=== PATIENT | male | born 1965 | race Caucasian/White ===

== ENCOUNTER 2018-02-11 08:45 | Day surgery (SDC) | payer BC ==
[2018-02-09 14:29] VITALS: BMI 36.9
[~2018-02-11 08:45] MED LIST: DEXAMETHASONE SOD PHOSPHATE 10 MG/ML 1 ML VIAL IV ONE; DEXAMETHASONE SOD PHOSPHATE 4 MG/ML 1 ML VIAL IV ONE; FAMOTIDINE 20 MG/2 ML VIAL IV ONE; HYDROmorphone 1 MG/ML 1 ML SYRINGE IVP PRN; LIDOCAINE 1% 20 ML VIAL (10MG/ML) FOR IV START INTRADERMA PRN; MIDAZOLAM (PF) 2 MG/2 ML VIAL IV PRN; ONDANSETRON 4 MG/2 ML VIAL IVP ONE; SCOPOLAMINE 1.5MG/72HR PATCH TRANSDERM ONE; ceFAZolin 1,000 MG in DEXTROSE/WATER 1 50ML.BAG IV ONE
[2018-02-11] MEDS: OXYMETAZOLINE 0.05% NASL SPRAY 1 SPRAY BOTTLE NASAL ONE ×5 (09:22→09:53)
[2018-02-11] MEDS: LACTATED RINGERS 1,000 ML IV SCH ×2 (09:35→12:22)
[2018-02-11] MEDS ORDERED: fentaNYL (PF) 50 MCG/ML 2 ML AMP ONE (10:12)
[2018-02-11] MEDS ORDERED: PROPOFOL 10 MG/ML 20 ML VIAL IV ONE (10:12)
[2018-02-11] MEDS ORDERED: LIDOCAINE 1% INJ 10MG/ML (20 ML MDV) ONE (10:12)
[2018-02-11] MEDS ORDERED: SUCCINYLCHOLINE CHLORIDE VIAL 200 MG/10 ML VIAL IV ONE (10:12)
[2018-02-11] MEDS ORDERED: MIDAZOLAM 2 MG/2 ML VIAL ONE (10:12)
[2018-02-11] MEDS ORDERED: DEXAMETHASONE SOD PHOS (MDV) 100 MG/10 ML VIAL ONE (10:12)
[2018-02-11] MEDS ORDERED: BUPIVACAIN-EPI 0.5%-1:200,000 30 ML VIAL SQ ONE ×2 (10:43)
[2018-02-11] MEDS ORDERED: BACITRACIN 500 UNIT/GM OINT 28.4 GM TUBE TOPICAL ONE (10:43)
[2018-02-11] MEDS ORDERED: FLUORESCEIN STRIPS 1 MG STRIP MISCELLANE ONE (10:43)
[2018-02-11] MEDS ORDERED: LIDOCAINE 1%-EPI 1:100,000 20 ML VIAL SQ ONE ×2 (10:43)
[2018-02-11] MEDS ORDERED: EPINEPHrine 1 MG/ML (MDV) 30 ML VIAL TOPICAL ONE (10:44)
--- NOTE | 2018-02-11 11:51 | P.OP ---
Date of Procedure: 02/11/18 Preoperative Diagnosis: Deviated nasal septum Bilateral hypertrophy of the inferior nasal turbinates Bilateral chronic maxillary sinusitis with a left maxillary sinus mucous retention cyst\polyp Postoperative Diagnosis: same Procedure(s) Performed: Septoplasty Bilateral submucosal resection of the inferior turbinates with outfracturing compression Bilateral functional endoscopic sinus surgery with maxillary antrostomies and removal of a left maxillary sinus cyst and polyp Anesthesia: IVETTE Surgeon: Ramses Duran Estimated Blood Loss (ml): 50 Pathology: other (Sinonasal) Condition: stable Disposition: PACU Indications for Procedure: This patient presented to the office with chronic sinus symptoms including nasal congestion intranasal scabbing crusting anosmia constant discolored drainage etc. The patient was found have chronic maxillary sinusitis with a polyp or cyst of the left maxillary sinus. The very severe deviated nasal septum with large obstructive inferior turbinates. He failed medical therapy including antibiotics and cortical steroid nasal sprays and surgical correction was recommended. All risks, benefits, and alternative therapies were discussed. Risks of bleeding, infection, penetration of the skull base or orbit , septal perforation, scar, etc. etc. were explained. Consent was obtained and all questions were answered. Operative Findings: Patient had a severely deviated nasal septum with severe derangement. Large obstructive inferior turbinates with ramses pus intranasal crusting scabbing and diseased tissue of the bilateral maxillary sinuses. A large cystic polyp was removed left maxillary sinus. Description of Procedure: This patient was taken to the operative room and placed in the supine position. A general inhalation anesthetic was administered to the patient by the department of anesthesia with a functioning IV line in place. The patient was monitored throughout the entire case by the department of anesthesia. The eyes were taped shut for protection. The patient was placed in a slight reverse Trendelenburg position. The patient had previously utilize Afrin nasal spray preoperatively. The nose was evaluated and the septum lateral nasal wall and inferior turbinates were injected with lidocaine 1% with epinephrine 1 100,000 bilaterally. Approximately 10 minutes were allowed wait for full vasoconstrictive effects to take place. At this point a caudal incision was made over the caudal portion of the left septum down to the mucoperichondrium. A mucoperichondrial flap was elevated on the left side and dissection was carried with use of tunnels posteriorly. We then made a crossover incision through the cartilage to the contralateral side and for the mucoperichondrial flap development was performed to the extent of visualization on the contralateral side. After the cartilage was freed with use of several crosshatching incisions and removal of some redundant strips of septal cartilage, the septum was straightened and placed back in the midline. The septum was sutured fixated to the ovarian groove. Excellent straightening occurred and the septum was visibly straight. Incision was closed with a 40 rapid Vicryl. We utilized a running nonlocking fashion for closure of the incision. A quilting stitch was used to reapproximate the septal flaps with use of a 40 rapid Vicryl. We then entered the nose with a 0 and 30 Grayson olamide endoscope. Previous to this we did inject the lateral nasal wall and middle turbinate and uncinate process with lidocaine 1% with epinephrine 1 100,000. Approximately 10 minutes were allowed wait for full vasoconstrictive effects to take place. With use of a microdebrider and a pediatric backbiter, we took down the uncinate process bilaterally. We then opened the maxillary sinuses bilaterally. We utilized a microdebrider for this and entered the maxillary sinuses and removed diseased tissue. This was done bilaterally.A large left maxillary polyp/mucous retention cyst was removed. Propel was inserted bilaterally. Xerogel was inserted and minimal bleeding was encountered. We reinspected the skull base there is no signs of any orbital penetration or signs of any intracranial penetration. The sugical site was reinspected after the xerogel was placed and no bleeding was seen. Intranasal splints were inserted and fixated at the end of the case. We utilized Ambrosio nasal splints. There will be removed and the patient returns to the office. Attention was then paid to the inferior turbinates. The bilateral inferior turbinates were hypertrophic and obstructive. We entered the anterior portion of the inferior turbinates with use of a microdebrider. We remove bone and submucosal elements with use of a microdebrider bilaterally. The inferior turbinates underwent a submucosal resection with removal of submucosal tissue and bone. We obtained a much better and normal in size for breathing. The inferior turbinates were then outfractured and compressed with a Playtoxes nasal elevator. Excellent airway was obtained and was symmetric bilaterally. No bleeding was encountered.
[2018-02-11 11:57] VITALS: TEMP 97.2
[2018-02-11] MEDS ORDERED: HYDROmorphone 0.5 MG/0.5 ML SYRINGE IVP ONE ×2 (12:05→12:14)
[2018-02-11] MEDS ORDERED: HYDROcodone/APAP 5-325MG 1 EACH TAB PO ONE (13:32)
[2018-02-11 14:44] VITALS: BP 126/77; PULSE 49; RESP 15
== END 2018-02-11 15:49 | disposition home or self-care (01) ==
LOC: OR 08:45
PROVIDERS: ATTEND Otolaryngology
DX: J34.2 Deviated nasal septum (principal); J32.0 Chronic maxillary sinusitis; J34.3 Hypertrophy of nasal turbinates; J33.8 Other polyp of sinus; H91.90 Unspecified hearing loss, unspecified ear; I10 Essential (primary) hypertension; G43.909 Migraine, unspecified, not intractable, without status migrainosus; E66.9 Obesity, unspecified; Z68.36 Body mass index [BMI] 36.0-36.9, adult; Z79.1 Long term (current) use of non-steroidal anti-inflammatories (NSAID); Z79.891 Long term (current) use of opiate analgesic; Z79.899 Other long term (current) drug therapy; Z91.030 Bee allergy status; Z87.891 Personal history of nicotine dependence
CPT/HCPCS: 88305; 88300; 30520; 30140; 31267; C2625; J0171; J2250; J0330; J1100 ×2; J2405; J2001; J3010; J0690; J2704; J1170

== ENCOUNTER → 2019-12-23 | Outpatient (CLI) | payer BC ==
--- NOTE | 2019-12-23 10:43 | CT ---
EXAMINATION TYPE: CT soft tissue neck w con DATE OF EXAM: 12/23/2019 8:18 AM COMPARISON: None HISTORY: Bilateral neck masses CT DLP: 734.8 mGycm Automated exposure control for dose reduction was used. CONTRAST: CT scan of the neck is performed following with IV Contrast, patient injected with 100 cc of Isovue 3 00. Axial images are obtained, coronal and sagittal reformatted images are reviewed. FINDINGS: Airway: No gross abnormality seen. Upper lobes show moderate emphysematous change. Parotid/submandibular glands: No gross abnormality seen. Carotid/Vascular Structures: 4 super aortic branch vessels are present. Osseous Structures: Patient is status post anterior cervical fusion and discectomy at C5-6 degenerati ve disc changes are present Other: Nonenlarged nodes are present bilaterally along the cervical chains. IMPRESSION: Nonenlarged nodes are present within the neck. Emphysema.
== END | disposition home or self-care (01) ==
LOC: RADCTMAIN 07:31
PROVIDERS: ATTEND Family Medicine
DX: R22.1 Localized swelling, mass and lump, neck (principal)
CPT/HCPCS: 70491; Q9967